=== PATIENT | male | born 1990 | race American Indian/Alaskan Native ===

== ENCOUNTER 2016-12-05 09:16 | Emergency (ER) | payer BC ==
[2016-12-05 12:08] LABS: Basophils % (Auto) 0.4 % (0.0-1.8); Hematocrit 45.2 % (35.5-45.6); Hemoglobin 15.1 gm/dl (11.8-15.2); Mean Corpuscular HGB Conc 33 % (32-34); Mean Corpuscular Hemoglobin 30 pg (28-32); Mean Corpuscular Volume 88 fl (84-94); Platelet Count 305 K/mm3 (140-440); Red Blood Count 5.13 M/mm3 (3.65-5.03); Red Cell Distribution Width 13.7 % (13.2-15.2)
[2016-12-05 12:26] LABS: Anion Gap 15 mmol/L; Blood Urea Nitrogen 9 mg/dL (9-20); Calcium 9.3 mg/dL (8.4-10.2); Carbon Dioxide 29 mmol/L (22-30); Glucose 96 mg/dL (75-100); Potassium 4.6 mmol/L (3.6-5.0); Sodium 138 mmol/L (137-145)
[2016-12-05] MEDS ORDERED: NACL 0.9% 1000 ML 1,000 ML IV ONE (12:45)
--- NOTE | 2016-12-05 13:25 | Emergency Department Report ---
<KRIS DIEHL - Last Filed: 12/05/16 18:14> ED Dizziness HPI - General Chief Complaint: Dizziness Stated Complaint: DIZZINESS/LIGHT HEADED Time Seen by Provider: 12/05/16 12:26 - Related Data Previous Rx's Medication Instructions Recorded Last Taken Type diphenhydrAMINE [Benadryl CAP] 50 mg PO Q8HR PRN #15 capsule 03/01/16 Unknown Rx Amoxicillin [Amoxicillin TAB] 875 mg PO BID #20 tablet 04/11/16 Unknown Rx Ibuprofen [Motrin 800 MG tab] 800 mg PO Q8HR PRN #15 tablet 04/11/16 Unknown Rx Ondansetron [Zofran Odt] 4 mg PO Q8HR 5 Days 12/05/16 Unknown Rx Allergies Allergy/AdvReac Type Severity Reaction Status Date / Time No Known Allergies Allergy Verified 03/01/16 11:29 ED Review of Systems ROS: Stated complaint: DIZZINESS/LIGHT HEADED Other details as noted in HPI ED Past Medical Hx - Medications Home Medications: Home Medications Medication Instructions Recorded Confirmed Last Taken Type diphenhydrAMINE [Benadryl CAP] 50 mg PO Q8HR PRN #15 capsule 03/01/16 Unknown Rx Amoxicillin [Amoxicillin TAB] 875 mg PO BID #20 tablet 04/11/16 Unknown Rx Ibuprofen [Motrin 800 MG tab] 800 mg PO Q8HR PRN #15 tablet 04/11/16 Unknown Rx Ondansetron [Zofran Odt] 4 mg PO Q8HR 5 Days 12/05/16 Unknown Rx ED Course Vital Signs 12/05/16 12/05/16 12/05/16 11:06 15:12 15:57 Temperature 98.6 F Pulse Rate 62 60 Respiratory 18 18 20 Rate Blood Pressure 129/85 Blood Pressure 122/82 [Right] O2 Sat by Pulse 100 99 Oximetry ED Medical Decision Making - Lab Data Result diagrams: 12/05/16 11:53 12/05/16 11:53 Critical care attestation.: If time is entered above; I have spent that time in minutes in the direct care of this critically ill patient, excluding procedure time. ED Disposition Clinical Impression: Nausea & vomiting, Dizziness, Headache Disposition: DC-01 TO HOME OR SELFCARE Condition: Stable Instructions: Ondansetron (By mouth), Electrolyte Supplement (By mouth), Liquids and Hydration for Athletes (ED), Acute Headache (ED), Lightheadedness ( ED), Dizziness (ED) Additional Instructions: follow up with your primary care doctor in 3-5 days or if symptoms such as increased nausea, vomiting, chest pain, short of breath, fever, chills, stiff neck, numbness or tingling return to emergency room as soon as possible. Increase hydration as much as possible and limit sun exposure. Prescriptions: Ondansetron [Zofran Odt] 4 mg PO Q8HR 5 Days Referrals: PRIMARY MD HAYES [Primary Care Provider] - 3-5 Days GEREMIAS DORMAN MD [Staff Physician] - 3-5 Days [facility] [Outside] - 3-5 Days [facility] [Outside] - 3-5 Days Forms: Work/School Release Form(ED) <SUZI RODRIGUEZ - Last Filed: 12/05/16 18:50> ED Dizziness HPI - General Source: patient Mode of arrival: Ambulatory Limitations: No Limitations - History of Present Illness Initial Comments: This is a 26-year-old male nontoxic, well nourished in appearance, no acute signs of distress that presents to the ED complaining of dizziness, lightheadedness, headache, with nausea vomiting 1 week. Patient stated has a chronic migraine headaches but this headache he stated is different. Patient describes headache as aching in the right temporal region. Patient stated it is a gradual onset of headache and denies thunderclap headache. Denies any facial drooping, eye pain, facial numbness or tingling. Patient denies any fever, chills, chest pain, shortness of breathe, numbness, tingling, or abdominal pain. Patient denies any head trauma. Denies recent travels, long car rides, or recent hospital stays. Patient stated his vomit was food content. Denies abdominal distention. Patient denies vertigo. Denies abnormal gait. 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 Patient denies any calf pain or tenderness. Denies PMH besides migraine headaches. Denies any allergies. Complaint: dizziness, lightheadedness -: Gradual, week(s) (1) Timing: gradual onset Description: lightheadedness History of Same: No History of Trauma: No Severity: mild Improves With: rest Worsens With: nothing Associated Symptoms: denies other symptoms. denies: ataxia, chest pain, confusion, cough, diaphoresis, fever/chills, loss of appetite, malaise, rash, seizure, shortness of breath, syncope, weakness ED Review of Systems Constitutional: denies: chills, fever Eyes: denies: eye pain, eye discharge, vision change ENT: denies: ear pain, throat pain Respiratory: denies: cough, shortness of breath, wheezing Cardiovascular: denies: chest pain, palpitations Endocrine: no symptoms reported Gastrointestinal: denies: abdominal pain, nausea, diarrhea Genitourinary: denies: urgency, dysuria Musculoskeletal: denies: back pain, joint swelling, arthralgia Skin: denies: rash, lesions Neurological: denies: headache, weakness, paresthesias Psychiatric: denies: anxiety, depression Hematological/Lymphatic: denies: easy bleeding, easy bruising ED Past Medical Hx - Past Medical History Previous Medical History?: Yes Hx Headaches / Migraines: Yes - Surgical History Past Surgical History?: No - Social History Smoking Status: Current Some Day Smoker Substance Use Type: None ED Physical Exam - General Limitations: No Limitations General appearance: alert, in no apparent distress - Head Head exam: Present: atraumatic, normocephalic, normal inspection - Eye Eye exam: Present: normal appearance, PERRL, EOMI. Absent: scleral icterus, conjunctival injection, nystagmus, periorbital swelling, periorbital tenderness Pupils: Present: normal accommodation - ENT ENT exam: Present: normal exam, normal orophraynx, mucous membranes moist, TM's normal bilaterally, normal external ear exam - Neck Neck exam: Present: normal inspection, full ROM. Absent: tenderness, meningismus, lymphadenopathy, thyromegaly - Respiratory Respiratory exam: Present: normal lung sounds bilaterally. Absent: respiratory distress, wheezes, rales, rhonchi, stridor, chest wall tenderness, accessory muscle use, decreased breath sounds, prolonged expiratory - Cardiovascular Cardiovascular Exam: Present: regular rate, normal rhythm, normal heart sounds. Absent: bradycardia, tachycardia, irregular rhythm, systolic murmur, diastolic murmur, rubs, gallop - GI/Abdominal GI/Abdominal exam: Present: soft, normal bowel sounds. Absent: distended, tenderness, guarding, rebound, rigid, diminished bowel sounds - Rectal Rectal exam: Present: deferred - Extremities Exam Extremities exam: Present: normal inspection, full ROM, normal capillary refill. Absent: tenderness, pedal edema, joint swelling, calf tenderness - Back Exam Back exam: Present: normal inspection, full ROM. Absent: tenderness, CVA tenderness (R), CVA tenderness (L), muscle spasm, paraspinal tenderness, vertebral tenderness, rash noted - Neurological Exam Neurological exam: Present: alert, oriented X3, CN II-XII intact, normal gait, reflexes normal - Expanded Neurological Exam Expanded Patient oriented to: Present: person, place, time Speech: Present: fluid speech (normal speech) Cranial nerves: EOM's Intact: Normal, Gag Reflex: Normal, Tongue Deviation: Normal, Nystagmus: Normal, Facial Sensation: Normal, Facial Palsy with Forehead Movement: Normal, Facial Palsy without Forehead Movement: Normal Cerebellar function: Finger to Nose: Normal, Heel to Ivory: Normal, Romberg: Normal Upper motor neuron: Parker Neglect: Normal, Pronator Drift: Normal, Babinski Sign : Normal, Sensory Extinction: Normal Sensory exam: Upper Extremity Light Touch: Normal, Upper Extremity Pin Prick: Normal, Upper Extremity Temperature: Normal, UE 2 Point Discrimination: Normal, Lower Extremity Light Touch: Normal, Lower Extremity Pin Prick: Normal, Lower Extremity Temperature: Normal, LE 2 Point Discrimination: Normal Motor strength exam: RUE: 5, LUE: 5, RLE: 5, LLE: 5 DTR: bicep (R): 2+, bicep (L): 2+, tricep (R): 2+, tricep (L): 2+, knee (R): 2+ , knee (L): 2+, ankle (R): 2+, ankle (L): 2+ Best Eye Response ([place]): (4) open spontaneously Best Motor Response ([place]): (6) obeys commands Best Verbal Response ([place]): (5) oriented [place] Total: 15 - Psychiatric Psychiatric exam: Present: normal affect, normal mood. Absent: depressed, agitated - Skin Skin exam: Present: warm, dry, intact, normal color. Absent: rash ED Course - Reevaluation(s) Reevaluation #1: 12/05/16 13:29 Patient is able to speak in full sentences with no signs of distress noted. Reevaluation #2: 12/05/16 15:22 Patient stated feels much better after medical treatment in the ED. Reevaluation #3: 12/05/16 15:22 Patient tolerated PO challenge with no vomiting or nausea noted. ED Medical Decision Making - Lab Data Result diagrams: 12/05/16 11:53 12/05/16 11:53 - Medical Decision Making Ed course: This is a 26-year-old male that presents with dizziness, n/v, and headache 1- patient was examined by myself. CBC, BMP, ESR, CT of head without contrast, hepatic panel, lipase and amylase have been obtained in ED. Patient was notified of findings without further questioning by the patient. 2- patient received 1 L normal saline IV. Because data feels much better. By mouth challenge has been obtained with no signs of nausea or vomiting noted. Patient received Zofran as well in the ED IV. 3- patient was instructed to increase hydration during work and minimize sun exposure. 4- patient was also notified to follow up with her primary care doctor in 3-5 days or if symptoms such as increased nausea, vomiting, chest pain, short of breath, fever, chills, stiff neck, numbness or tingling return to emergency room as soon as possible. 5- At time time of discharge, the patient does not seem toxic or ill in appearance. No acute signs of distress noted. Patient agrees to discharge treatment plan of care. No further questions noted by the patient. 6- patient requested to go back to work on Monday due to tiredness and needs a couple of days to rest/ ED Disposition Is pt being admited?: No Does the pt Need Aspirin: No
[2016-12-05] MEDS ORDERED: ZOFRAN IV ONE (13:31)
--- NOTE | 2016-12-05 13:56 | Cat Scan Report ---
CT HEAD WITHOUT CONTRAST INDICATION: Headache. COMPARISON: None similar. FINDINGS: Noncontrast head CT demonstrates normal ventricles and sulci without acute or recent infarct, hemorrhage, mass effect or midline shift. No abnormal extra-axial fluid collections. Posterior fossa structures and basilar cisterns appear within normal limits. Symmetric eye globes. Approximately 2 mm leftward nasal septal spur. Mild right maxillary and bilateral sphenoethmoid mucosal thickening. Clear remainder imaged paranasal sinuses and mastoid air cells. Intact calvarium. Normal overlying scalp soft tissues. Few radiopaque dental material incidentally noted. CONCLUSION: No acute intracranial CT abnormality with slight sinusitis, as described. Thank you for the opportunity to participate in this patient's care.
[2016-12-05 14:37] LABS: Alanine Aminotransferase 19 units/L (7-56); Albumin 4.2 g/dL (3.9-5); Albumin/Globulin Ratio 1.1 %; Alkaline Phosphatase 72 units/L (35-129); Amylase 93 units/L (27-131); Lipase 21 units/L (13-60); Total Protein 8.1 g/dL (6.3-8.2)
[2016-12-05 14:48] LABS: Bilirubin,Direct < 0.2 mg/dL (0-0.2)
[2016-12-05] MEDS ORDERED: TORADOL IV ONE (15:09)
[2016-12-05] MEDS ORDERED: TORADOL ONE (15:09)
[2016-12-05 15:58] VITALS: BP 122/82
--- NOTE | 2016-12-05 17:42 | Emergency Department Report ---
Entered by BRENDEN MARIEE, acting as scribe for KRIS DIEHL PA. Chief Complaint: Dizziness Stated Complaint: DIZZINESS/LIGHT HEADED Time Seen by Provider: 12/05/16 11:25 - HPI History of Present Illness: Pt c/o dizziness and lightheadedness for 2 days. Reports nausea, and vomiting. Reports an 8/10 right frontal headache. Denies that this headache feels similar to his past migraines, because he doesn't have photophobia Reports sharp 7/10 posterior right sided neck pain Denies photophobia and visual disturbances. Denies fever and chills. Denies any head trauma/injury Denies that this is the worst headache of his life PMHx of migraines - ROS Review of Systems: All system are negative unless stated in HPI above. - Exam Vital Signs: Vital Signs 12/05/16 11:06 Temperature 98.6 F Pulse Rate 62 Respiratory 18 Rate Blood Pressure 129/85 O2 Sat by Pulse 100 Oximetry Physical Exam: General: well nourished, well developed, 26 year old male in no acute distress and nontoxic in appearance Neuro: negative romberg, negative pronator drift. Strength 5/5 in all extremities. Negative nystagmus. Normal gait. GCS 15. Alert and oriented x 3 Cardiovascular: S1-S2, regular rate, regular rhythm. No murmurs. MSE screening note: Focused history and physical exam performed. Due to findings the following was ordered: see below ED Medical Decision Making - Medical Decision Making Patient screened by provider in triage area. BNP and CBC sent in for patient. Patient sent to be seen by another provider in fast track. ED Disposition for MSE Condition: Stable This documentation as recorded by the scribe,BRENDEN MARIEE,accurately reflects the service I personally performed and the decisions made by me,KRIS DIEHL PA.
== END 2016-12-05 15:57 | disposition home or self-care (01) ==
LOC: ED 09:16
DX: R42 Dizziness and giddiness (principal); R11.2 Nausea with vomiting, unspecified; R51 Headache; Z72.0 Tobacco use
CPT/HCPCS: 36415; 70450; 80048; 80074; 82150; 83690; 85025; 85652; 96361; 96374; 96375; 99284; J1885; J2405; J7030

== ENCOUNTER 2017-01-03 01:22 | Emergency (ER) | payer BC ==
[2017-01-03] MEDS ORDERED: TYLENOL ONE (02:04)
[2017-01-03] MEDS ORDERED: TYLENOL PO ONE (02:41)
[2017-01-03 05:12] VITALS: BP 154/94
--- NOTE | 2017-01-03 05:27 | Emergency Department Report ---
ED ENT HPI - General Chief complaint: Dental/Oral Stated complaint: TOOTHACHE Source: patient Mode of arrival: Ambulatory Limitations: No Limitations - History of Present Illness Initial comments: 26 year old male presents to ED with right lower dental pain x2 days. patient is stable, neurologically intact and in no acute distress. MD complaint: tooth pain -: Sudden Location: tooth # (right lower tooth) 1 - tooth pain Severity: mild Quality: constant Consistency: constant Improves with: none Worsens with: eating Context- Dental: history of dental caries Associated Symptoms: toothache. denies: fever, cough, sore throat, discharge from ear - Related Data Previous Rx's Medication Instructions Recorded Last Taken Type diphenhydrAMINE [Benadryl CAP] 50 mg PO Q8HR PRN #15 capsule 03/01/16 Unknown Rx Amoxicillin [Amoxicillin TAB] 875 mg PO BID #20 tablet 04/11/16 Unknown Rx Ibuprofen [Motrin 800 MG tab] 800 mg PO Q8HR PRN #15 tablet 04/11/16 Unknown Rx Ondansetron [Zofran Odt] 4 mg PO Q8HR 5 Days 12/05/16 Unknown Rx Amoxicillin 500 mg PO Q12H #14 capsule 01/03/17 Unknown Rx Naproxen [Naprosyn] 500 mg PO BID #14 tablet 01/03/17 Unknown Rx Allergies Allergy/AdvReac Type Severity Reaction Status Date / Time No Known Allergies Allergy Verified 03/01/16 11:29 ED Dental HPI - General Chief complaint: Dental/Oral Stated complaint: TOOTHACHE Source: patient Mode of arrival: Ambulatory Limitations: No Limitations - Related Data Previous Rx's Medication Instructions Recorded Last Taken Type diphenhydrAMINE [Benadryl CAP] 50 mg PO Q8HR PRN #15 capsule 03/01/16 Unknown Rx Amoxicillin [Amoxicillin TAB] 875 mg PO BID #20 tablet 04/11/16 Unknown Rx Ibuprofen [Motrin 800 MG tab] 800 mg PO Q8HR PRN #15 tablet 04/11/16 Unknown Rx Ondansetron [Zofran Odt] 4 mg PO Q8HR 5 Days 12/05/16 Unknown Rx Amoxicillin 500 mg PO Q12H #14 capsule 01/03/17 Unknown Rx Naproxen [Naprosyn] 500 mg PO BID #14 tablet 01/03/17 Unknown Rx Allergies Allergy/AdvReac Type Severity Reaction Status Date / Time No Known Allergies Allergy Verified 03/01/16 11:29 ED Review of Systems ROS: Stated complaint: TOOTHACHE Other details as noted in HPI Constitutional: denies: chills, fever Eyes: denies: eye pain, eye discharge, vision change ENT: ear pain, dental pain. denies: throat pain Respiratory: denies: cough, shortness of breath, wheezing Cardiovascular: denies: chest pain, palpitations Endocrine: no symptoms reported Gastrointestinal: denies: abdominal pain, nausea, diarrhea Genitourinary: denies: urgency, dysuria Musculoskeletal: denies: back pain, joint swelling, arthralgia Skin: denies: rash, lesions Neurological: denies: headache, weakness, paresthesias Psychiatric: denies: anxiety, depression Hematological/Lymphatic: denies: easy bleeding, easy bruising ED Past Medical Hx - Past Medical History Previous Medical History?: Yes Hx Headaches / Migraines: Yes - Surgical History Past Surgical History?: No - Social History Smoking Status: Light Tobacco Smoker Substance Use Type: Marijuana - Medications Home Medications: Home Medications Medication Instructions Recorded Confirmed Last Taken Type diphenhydrAMINE [Benadryl CAP] 50 mg PO Q8HR PRN #15 capsule 03/01/16 Unknown Rx Amoxicillin [Amoxicillin TAB] 875 mg PO BID #20 tablet 04/11/16 Unknown Rx Ibuprofen [Motrin 800 MG tab] 800 mg PO Q8HR PRN #15 tablet 04/11/16 Unknown Rx Ondansetron [Zofran Odt] 4 mg PO Q8HR 5 Days 12/05/16 Unknown Rx Amoxicillin 500 mg PO Q12H #14 capsule 01/03/17 Unknown Rx Naproxen [Naprosyn] 500 mg PO BID #14 tablet 01/03/17 Unknown Rx ED Physical Exam - General Limitations: No Limitations General appearance: alert, in no apparent distress - Head Head exam: Present: atraumatic, normocephalic - Eye Eye exam: Present: normal appearance, PERRL, EOMI Pupils: Present: normal accommodation - ENT ENT exam: Present: normal exam, mucous membranes moist, TM's normal bilaterally - Neck Neck exam: Present: normal inspection, full ROM. Absent: tenderness, lymphadenopathy - Respiratory Respiratory exam: Present: normal lung sounds bilaterally. Absent: respiratory distress, wheezes, rales - Cardiovascular Cardiovascular Exam: Present: regular rate, normal rhythm. Absent: systolic murmur, diastolic murmur, rubs, gallop - GI/Abdominal GI/Abdominal exam: Present: soft, normal bowel sounds. Absent: distended, tenderness, guarding - Rectal Rectal exam: Present: deferred - Extremities Exam Extremities exam: Present: normal inspection - Back Exam Back exam: Present: normal inspection - Neurological Exam Neurological exam: Present: alert, oriented X3, normal gait - Psychiatric Psychiatric exam: Present: normal affect, normal mood - Skin Skin exam: Present: warm, dry, intact, normal color. Absent: rash ED Course Vital Signs 01/03/17 01/03/17 02:00 05:12 Temperature 97.8 F Pulse Rate 68 60 Respiratory 18 18 Rate Blood Pressure 142/106 154/94 [Right] O2 Sat by Pulse 100 100 Oximetry ED Medical Decision Making - Medical Decision Making 26 year old male presents to ED with dental pain on right lower side x2 days. patient has no abscess present on exam. patient agrees and understands to follow up with [facility]. patient is stable, neurologically intact and in no acute distress. Critical care attestation.: If time is entered above; I have spent that time in minutes in the direct care of this critically ill patient, excluding procedure time. ED Disposition Clinical Impression: Pain, dental Disposition: DC-01 TO HOME OR SELFCARE Is pt being admited?: No Does the pt Need Aspirin: No Condition: Stable Instructions: Toothache (ED) Prescriptions: Amoxicillin 500 mg PO Q12H #14 capsule Naproxen [Naprosyn] 500 mg PO BID #14 tablet Referrals: [facility] [Outside] - 2-3 Days Forms: Work/School Release Form(ED)
[2017-01-03] MEDS ORDERED: NORCO 5/325 PO ONE (05:31)
[2017-01-03] MEDS ORDERED: TORADOL IM ONE (05:31)
[2017-01-03] MEDS ORDERED: TORADOL ONE (05:39)
== END 2017-01-03 06:27 | disposition home or self-care (01) ==
LOC: ED 01:22
DX: K08.89 Other specified disorders of teeth and supporting structures (principal); G43.909 Migraine, unspecified, not intractable, without status migrainosus; F17.200 Nicotine dependence, unspecified, uncomplicated; F12.10 Cannabis abuse, uncomplicated
CPT/HCPCS: 96372; 99282; J1885

== ENCOUNTER 2017-05-30 16:58 | Emergency (ER) | payer SELFPAY ==
[2017-05-30 17:33] VITALS: BP 167/89
[2017-05-30] MEDS ORDERED: TYLENOL PO ONE (19:10)
[2017-05-30] MEDS ORDERED: TYLENOL ONE (19:11)
[2017-05-30] MEDS ORDERED: DELTASONE PO ONE (23:45)
--- NOTE | 2017-05-30 23:45 | Emergency Department Report ---
Minor Respiratory - HPI Chief Complaint: Upper Respiratory Infection Stated Complaint: FLU LIKE SYMPTOMS Time Seen by Provider: 05/30/17 23:31 Duration: 2 Days Severity: mild Minor Respiratory: Yes Able to Tolerate Fluids, Yes Cough, No Rhinorrhea, No Sore Throat, No Ear Pain, No Sick Contacts, No Hemoptysis, No Chest Pain, No Shortness of Breath, No Fever Other History: Pt is a 27-year-old male who presents to ED complaining of cough and body aches for the past 2 days. Patient given its nausea/vomiting/ abdominal pain/chest pain/diarrhea or any other problems. Patient states that symptoms are worse today. ED Review of Systems ROS: Stated complaint: FLU LIKE SYMPTOMS Other details as noted in HPI Constitutional: denies: chills, fever Eyes: denies: eye pain, eye discharge, vision change ENT: denies: ear pain, throat pain Respiratory: denies: cough, shortness of breath, wheezing Cardiovascular: denies: chest pain, palpitations Endocrine: no symptoms reported Gastrointestinal: denies: abdominal pain, nausea, diarrhea Genitourinary: denies: urgency, dysuria Musculoskeletal: denies: back pain, joint swelling, arthralgia Skin: denies: rash, lesions Neurological: denies: headache, weakness, paresthesias Psychiatric: denies: anxiety, depression Hematological/Lymphatic: denies: easy bleeding, easy bruising ED Past Medical Hx - Past Medical History Hx Headaches / Migraines: Yes - Social History Smoking Status: Current Every Day Smoker Substance Use Type: None - Medications Home Medications: Home Medications Medication Instructions Recorded Confirmed Last Taken Type diphenhydrAMINE [Benadryl CAP] 50 mg PO Q8HR PRN #15 capsule 03/01/16 Unknown Rx Amoxicillin [Amoxicillin TAB] 875 mg PO BID #20 tablet 04/11/16 Unknown Rx Ibuprofen [Motrin 800 MG tab] 800 mg PO Q8HR PRN #15 tablet 04/11/16 Unknown Rx Ondansetron [Zofran Odt] 4 mg PO Q8HR 5 Days tab.rapdis 12/05/16 Unknown Rx Amoxicillin 500 mg PO Q12H #14 capsule 01/03/17 Unknown Rx Naproxen [Naprosyn] 500 mg PO BID #14 tablet 01/03/17 Unknown Rx Ibuprofen [Motrin 800 MG tab] 800 mg PO TID #30 tablet 05/31/17 Unknown Rx guaiFENesin [Robitussin] 200 mg PO TID #100 ml 05/31/17 Unknown Rx Minor Respiratory Exam - Exam General: Vital signs noted. No distress. Alert and acting appropriately. HEENT: Yes Moist Mucous Membranes, No Pharyngeal Erythema, No Pharyngeal Exudates, No Rhinorrhea, No Conjuctival Injection, No Frontal Tenderness, No Maxillary Tenderness Ear: Neither TM Bulge, Neither TM Erythema, Neither EAC Pain, Neither EAC Discharge Neck: Yes Supple, No Adenopathy Lungs: Yes Good Air Exchange, No Wheezes, No Ronchi, No Stridor, No Cough, No Labored Respirations, No Retractions, No Use of Accessory Muscles, No Other Abnormal Lung Sounds Heart: Yes Regular, No Murmur Abdomen: Yes Normal Bowel Sounds, No Tenderness, No Peritoneal Signs Skin: No Rash, No Edema Neurologic: Alert and oriented, no deficits. Musculoskeletal: Unremarkable. ED Course Vital Signs 05/30/17 17:31 Temperature 98.8 F Pulse Rate 91 H Respiratory 18 Rate Blood Pressure 167/89 O2 Sat by Pulse 98 Oximetry ED Medical Decision Making - Radiology Data Radiology results: report reviewed, image reviewed FINAL REPORT EXAM: XR CHEST ROUTINE 2V HISTORY: phlem productive cough TECHNIQUE: PA and lateral views of the chest were submitted. FINDINGS: The heart size and mediastinum appear normal. The lungs are clear. Pleural fluid is not seen. The bones and soft tissues appear normal. IMPRESSION: Normal chest. Transcribed By: ALBERT Dictated By: COLE KIM MD Electronically Authenticated By: COLE KIM MD Signed Date/Time: 05/30/172014 - Medical Decision Making 27-year-old male presents with flulike symptoms. no fever during the ED stay. Discussed with symptomatic relief with [id number] medications. Discussed continue Motrin as needed for fever and pain. Discussed increase fluids and diet intake. Discussed rest much needed. Discussed daily vitamin C for immune booster. Discussed follow-up with goggles assembler in 3-5 days. Patient verbally states she understands and will comply the following instructions and follow-up Vital signs stable. Patient is in no acute distress Critical care attestation.: If time is entered above; I have spent that time in minutes in the direct care of this critically ill patient, excluding procedure time. ED Disposition Clinical Impression: Viral syndrome URI (upper respiratory infection) Qualifiers: URI type: unspecified URI Qualified Code(s): J06.9 - Acute upper respiratory infection, unspecified Disposition: DC- TO HOME OR SELFCARE Is pt being admited?: No Does the pt Need Aspirin: No Condition: Stable Instructions: Upper Respiratory Infection (ED), Viral Syndrome (ED) Additional Instructions: Make sure to follow up with the primary care physician as discussed. Take all your medications as you've been prescribed. If you have any worsening symptoms or develop new symptoms please return to ED immediately. Prescriptions: guaiFENesin [Robitussin] 200 mg PO TID #100 ml Ibuprofen [Motrin 800 MG tab] 800 mg PO TID #30 tablet Referrals: PARK BA MD [Primary Care Provider] - 3-[address] [facility] [Outside] - 3-5 Days [facility] [Outside] - 3-5 Days [facility] [Outside] - 3-5 Days Forms: Work/School Release Form(ED) Time of Disposition: 00:57
[2017-05-30] MEDS ORDERED: ROBITUSSIN PO ONE (23:48)
[2017-05-30] MEDS ORDERED: MOTRIN PO ONE (23:48)
--- NOTE | 2017-05-31 00:17 | XRay Report ---
FINAL REPORT EXAM: XR CHEST ROUTINE 2V HISTORY: phlem productive cough TECHNIQUE: PA and lateral views of the chest were submitted. FINDINGS: The heart size and mediastinum appear normal. The lungs are clear. Pleural fluid is not seen. The bones and soft tissues appear normal. IMPRESSION: Normal chest.
== END 2017-05-31 01:25 | disposition home or self-care (01) ==
LOC: ED 16:58
DX: J06.9 Acute upper respiratory infection, unspecified (principal); B34.9 Viral infection, unspecified; G43.909 Migraine, unspecified, not intractable, without status migrainosus; F17.200 Nicotine dependence, unspecified, uncomplicated
CPT/HCPCS: 71046; 87400; 99283; J7512

== ENCOUNTER 2018-06-03 16:02 | Emergency (ER) | payer SELFPAY ==
--- NOTE | 2018-06-03 17:42 | Emergency Department Report ---
ED Headache HPI - General Chief Complaint: Headache Stated Complaint: LEFT SIDE OF HEAD PAIN Time Seen by Provider: 06/03/18 17:32 Source: patient - History of Present Illness Initial Comments: 28-year-old male with a reported migraine history. Presents emergency department complaining of a left-sided lateral headache which is sharp in nature. Pain is worse when he palpates his scalp when he moves his scalp when he holds his hands in certain positions. Associated with occasional dizziness occurs sometimes with head change. Has a history of migraine headaches but states typical pattern is tried [id number] migraine successful leading to his visit here this evening. No nausea, vomiting, no photophobia. No phonophobia. No scotomas. No neck stiffness. No fever Timing/Duration: 1 week Quality: mild, moderate Head Injury Location: parietal Recent Head Trauma: no recent headache/trauma, occasional headaches Associated Symptoms: denies: fatigue, facial pain, fever/chills, nasal congestion, nasal drainage Allergies/Adverse Reactions: Allergies No Known Allergies Allergy (Verified 05/30/17 17:30) Home Medications: Ambulatory Orders diphenhydrAMINE [Benadryl CAP] 50 mg PO Q8HR PRN #15 capsule 03/01/16 Amoxicillin [Amoxicillin TAB] 875 mg PO BID #20 tablet 04/11/16 Ibuprofen [Motrin 800 MG tab] 800 mg PO Q8HR PRN #15 tablet 04/11/16 Ondansetron [Zofran Odt] 4 mg PO Q8HR 5 Days tab.rapdis 12/05/16 Amoxicillin 500 mg PO Q12H #14 capsule 01/03/17 Naproxen [Naprosyn] 500 mg PO BID #14 tablet 01/03/17 Ibuprofen [Motrin 800 MG tab] 800 mg PO TID #30 tablet 05/31/17 guaiFENesin [Robitussin] 200 mg PO TID #100 ml 05/31/17 Ketorolac [Toradol] 10 mg PO Q6H PRN #20 tablet 06/03/18 ED Review of Systems ROS: Stated complaint: LEFT SIDE OF HEAD PAIN Other details as noted in HPI Constitutional: denies: chills, fever Eyes: denies: eye pain, eye discharge, vision change ENT: denies: ear pain, throat pain Respiratory: denies: cough, shortness of breath, wheezing Cardiovascular: denies: chest pain, palpitations Endocrine: no symptoms reported Gastrointestinal: denies: abdominal pain, nausea, diarrhea Genitourinary: denies: urgency, dysuria Musculoskeletal: denies: back pain, joint swelling, arthralgia Skin: denies: rash, lesions Neurological: denies: headache, weakness, paresthesias Psychiatric: denies: anxiety, depression Hematological/Lymphatic: denies: easy bleeding, easy bruising ED Past Medical Hx - Past Medical History Hx Headaches / Migraines: Yes - Surgical History Past Surgical History?: No - Social History Smoking Status: Current Every Day Smoker Substance Use Type: None - Medications Home Medications: Home Medications Medication Instructions Recorded Confirmed Last Taken Type diphenhydrAMINE [Benadryl CAP] 50 mg PO Q8HR PRN #15 capsule 03/01/16 Unknown Rx Amoxicillin [Amoxicillin TAB] 875 mg PO BID #20 tablet 04/11/16 Unknown Rx Ibuprofen [Motrin 800 MG tab] 800 mg PO Q8HR PRN #15 tablet 04/11/16 Unknown Rx Ondansetron [Zofran Odt] 4 mg PO Q8HR 5 Days tab.rapdis 12/05/16 Unknown Rx Amoxicillin 500 mg PO Q12H #14 capsule 01/03/17 Unknown Rx Naproxen [Naprosyn] 500 mg PO BID #14 tablet 01/03/17 Unknown Rx Ibuprofen [Motrin 800 MG tab] 800 mg PO TID #30 tablet 05/31/17 Unknown Rx guaiFENesin [Robitussin] 200 mg PO TID #100 ml 05/31/17 Unknown Rx Ketorolac [Toradol] 10 mg PO Q6H PRN #20 tablet 06/03/18 Unknown Rx ED Physical Exam - General Limitations: No Limitations General appearance: alert, in no apparent distress - Head Head exam: Present: atraumatic, normocephalic - Eye Eye exam: Present: normal appearance, PERRL, EOMI, other (neg fundus exam). Abs ent: conjunctival injection, nystagmus, periorbital swelling, periorbital tenderness Pupils: Present: normal accommodation, other (neg fundus exam) - ENT ENT exam: Present: normal exam, normal orophraynx, mucous membranes moist, TM's normal bilaterally - Neck Neck exam: Present: normal inspection, full ROM. Absent: tenderness, lymphadenopathy - Respiratory Respiratory exam: Present: normal lung sounds bilaterally. Absent: respiratory distress, wheezes, rales, rhonchi, chest wall tenderness, accessory muscle use, decreased breath sounds, prolonged expiratory - Cardiovascular Cardiovascular Exam: Present: regular rate, normal rhythm. Absent: systolic murmur, diastolic murmur, rubs, gallop - GI/Abdominal GI/Abdominal exam: Present: soft, normal bowel sounds - Rectal Rectal exam: Present: deferred - Extremities Exam Extremities exam: Present: normal inspection, full ROM - Back Exam Back exam: Present: normal inspection. Absent: CVA tenderness (R), CVA tenderness (L) - Neurological Exam Neurological exam: Present: alert, oriented X3, CN II-XII intact, normal gait, other (neg romberg. normal finger to nose. normal speech) - Psychiatric Psychiatric exam: Present: normal affect, normal mood - Skin Skin exam: Present: warm, dry, intact, normal color. Absent: rash ED Course Vital Signs 06/03/18 16:05 Temperature 98 F Pulse Rate 65 Respiratory 16 Rate Blood Pressure 126/81 O2 Sat by Pulse 99 Oximetry ED Medical Decision Making - Radiology Data Radiology results: report reviewed - Differential Diagnosis migraine headache, tension headache, scalp infection, neuropathy Critical care attestation.: If time is entered above; I have spent that time in minutes in the direct care of this critically ill patient, excluding procedure time. ED Disposition Clinical Impression: Cephalgia Disposition: DC-01 TO HOME OR SELFCARE Is pt being admited?: No Does the pt Need Aspirin: No Condition: Stable Instructions: Acute Headache (ED) Prescriptions: Ketorolac [Toradol] 10 mg PO Q6H PRN #20 tablet PRN Reason: Pain
[2018-06-03] MEDS ORDERED: ULTRAM ONE (19:44)
[2018-06-03] MEDS ORDERED: ULTRAM PO ONE (19:44)
--- NOTE | 2018-06-03 20:05 | Cat Scan Report ---
FINAL REPORT EXAM: CT HEAD/BRAIN WO CON HISTORY: headache COMPARISON: CT head from November 2016. TECHNIQUE: Axial images obtained skull base through vertex. FINDINGS: No acute intracranial hemorrhage, midline shift or pathologic extra axial fluid collection. Ventricle s and cisterns are normal in size and configuration for the patient's age. Tamayo-white differentiation preserved. Calvarium grossly intact. Visualized ocular globes are grossly unremarkable. Mild mucosal thickening the visualized paranasal sinuses. Mastoid air cells are clear. IMPRESSION: No grossly acute intracranial abnormality.
[2018-06-03 21:34] VITALS: BP 128/70
== END 2018-06-03 21:34 | disposition home or self-care (01) ==
LOC: ED 16:02
DX: R51 Headache (principal); R42 Dizziness and giddiness; F17.200 Nicotine dependence, unspecified, uncomplicated
CPT/HCPCS: 70450